=== PATIENT | male | born 1980 | race Caucasian/White ===

== ENCOUNTER 2025-01-05 13:09 | Emergency (ER) | payer BC ==
[~2025-01-05] VITALS: Ht 175.3 cm; Wt 89.7 kg
[2025-01-05 13:16] VITALS: BP 145/97; PULSE 101; RESP 15; O2SAT 96
--- NOTE | 2025-01-05 14:20 | Physician Documentation ---
History of Present Illness ~ Chief Complaint: Allergic Reaction Stated Complaint: BEE STING Time Seen by MD: 13:34 HPI This 44-year-old male presents with swelling to his right hand and forearm after a insect sting on his wrist approximately a day and a half ago, patient reports the area of the sting is mildly painful to the touch and itchy otherwise the area is nontender. Patient reports no systemic symptoms such as fever or chills. Patient reports no other acute symptoms or concerns including no feeling of shortness of breath or throat tightness. Medication Reconciliation Allergies: Coded Allergies: Penicillins (Verified Allergy, Unknown, 01/05/25) Scheduled Prednisone* (Prednisone*), 1 TAB PO DAILY Review of Systems ROS Right hand swelling as stated above in the HPI, otherwise all systems are reviewed and negative. Physical Exam Vital Signs: Temperature: 98.0, Source: Temporal, Heart Rate: 101, Respiratory Rate: 15, BP: 145/97, Pulse Oximetry: 96, Weight: 89.650 Physical Exam VITALS: Reviewed and as above. GENERAL: Alert, nontoxic appearing, no apparent distress. HEENT: No facial swelling RESPIRATORY: No increased work of breathing, no respiratory distress, speaking in full clear sentences, clear lung sounds in all torre, no wheezing, no stridor MUSCULOSKELETAL: Nonpitting edema to right hand and forearm, range of motion intact, sensation intact SKIN: Right wrist small patch of erythema, otherwise surrounding skin of right hand and forearm nonerythematous, no ecchymosis Progress Results/Orders Results/Orders Orders - CARMEN KNOX VIDEO ENGINEER Ortho Orders (01/05/25 ) Vital Signs 01/05/25 01/05/25 13:16 14:47 Temp 98.0 98.0 Pulse 101 Resp 15 B/P (MAP) 145/97 Pulse Ox 96 Medical Decision Making Findings This 44-year-old male presented with swelling to his right forearm and hand with a patch of pruritic erythema following an insect bite, history and physical is consistent with localized reaction from insect envenomation without systemic findings. It was reassuring the bite was over 24 hours prior and patient has not developed systemic allergic reaction symptoms including no shortness of breath or feeling of airway tightness. Right hand is neurovascularly intact and has preserved range of motion though somewhat it is limited due to swelling. Otherwise patient's physical exam was benign and patient is well-appearing. Patient is hemodynamically stable and appropriate for outpatient follow up. Patient discharged with home care instructions and a short course of oral steroids. Patient provided careful return to care precautions which she verbalized understanding of. Differential Dx:Considerations: Include: Anaphylaxis, Angioedema, Contact dermatitis, Drug reaction, Respiratory failure, Shock, Urticaria Departure Disposition: HOME / SELF CARE / HOMELESS Impression: Primary Impression: Insect bite of forearm, right Qualified Codes: S50.861A - Insect bite (nonvenomous) of right forearm, initial encounter; W57.XXXA - Bitten or stung by nonvenomous insect and other nonvenomous arthropods, initial encounter Condition: Improved Discharge Instructions: Insect Bite, Adult, RICE Therapy for Routine Care of Injuries Additional Instructions: Please take the prescribed steroids, you may also use the attached home care instructions for rest, ice compression, and elevation to treat the swelling of the area. Please follow up for wound recheck with your primary care provider in the next few days or you may return to the emergency department for recheck. Please return to the emergency department for any new or worsening concerning symptoms. You may also use ibuprofen and or Tylenol as needed for pain as directed by [id number] packaging. Referrals: NO PRIMARY CARE PROVIDER (PCP) Prescriptions Prednisone* (Prednisone*) 20 Mg Tablet 1 TAB PO DAILY for 5 Days, #5 TAB Prov: CARMEN KNOX 01/05/25 Education Educated: Patient Educated regarding: diagnosis, treatment, prognosis, need for follow up Signature Scribe Signature: No scribe Attestation: The note accurately reflects work and decisions made by me.CHANCE Sands 01/05/25 22:27 CARMEN KNOX Jan 05, 2025 14:20
[2025-01-05] MEDS ORDERED: PRED20TA PO (14:22)
[2025-01-05 14:47] VITALS: TEMP 98
== END 2025-01-05 15:00 | disposition home or self-care (01) ==
LOC: ER 13:09
DX: S50.861A Insect bite (nonvenomous) of right forearm, initial encounter (principal); W57.XXXA Bitten or stung by nonvenomous insect and other nonvenomous arthropods, initial encounter; Z88.0 Allergy status to penicillin; Y93.89 Activity, other specified; Y92.89 Other specified places as the place of occurrence of the external cause; Y99.8 Other external cause status
CPT/HCPCS: 99283; A6449